=== PATIENT | male | born 1980 | race Caucasian/White ===

== ENCOUNTER 2021-06-20 12:15 | Outpatient (CLI) | payer OTHER | END 2021-06-20 12:16 | disposition home or self-care (01) | LOC: ULT 12:15 | PROVIDERS: ATTEND Internal Medicine Critical Care Medicine | DX: I26.92 Saddle embolus of pulmonary artery without acute cor pulmonale (principal); I08.3 Combined rheumatic disorders of mitral, aortic and tricuspid valves | CPT/HCPCS: 93306 ==

== ENCOUNTER 2022-08-20 12:31 | Outpatient (CLI) | payer OTHER | END 2022-08-20 12:32 | disposition home or self-care (01) | LOC: ULT 12:31 | PROVIDERS: ATTEND Internal Medicine Critical Care Medicine | DX: I26.92 Saddle embolus of pulmonary artery without acute cor pulmonale (principal); I08.3 Combined rheumatic disorders of mitral, aortic and tricuspid valves | CPT/HCPCS: 93306 ==

== ENCOUNTER 2022-09-23 17:22 | Observation (INO) | payer SELFPAY ==
[~2022-09-23 17:22] MED LIST: Iopamidol-370 76% 500 ML 1 ML ONE
[2022-09-23 18:41] LABS: #Eosinphils 0.1 thou/uL (0.0-0.7); #Lymphocytes 0.8 thou/uL (1.20-3.40); #Monocytes 0.6 thou/uL (0.11-0.59); #Neutrophils 5.6 thou/uL (1.40-6.50); %Basophils 0.2 % (0.0-1.0); %Lymphocytes 11.5 % (21.0-51.0); %Monocytes 8.2 % (0.0-10.0); %Neutrophils 79.2 % (42.0-75.0); Hemoglobin 15.9 g/dL (14.0-18.0); Mean Corpuscular Hemoglobin 33.1 pg (27.0-31.0); Mean Corpuscular Volume 97.6 fl (78.0-98.0); Mean Platelet Volume 9.2 fL (7.4-10.4); Platelet Count 148 10x3/uL (130-400); RBC Distribution Width 15.8 % (11.5-14.5); White Blood Cell (WBC) Count 7.1 10x3/uL (4.8-10.8)
[2022-09-23 19:07] LABS: ALT (SGPT) 19 U/L (8-55); AST (SGOT) 26 U/L (5-34); Albumin 4.2 g/dL (3.5-5.0); Alkaline Phosphatase 164 U/L (40-110); Anion Gap 15 mmol/L (10-20); BUN (Urea Nitrogen) 28 mg/dL (8.9-20.6); Bilirubin, Total 2.7 mg/dL (0.2-1.2); Calc. Creatinine Clearance 0 mL/min (70-130); Calcium 9.2 mg/dL (7.8-10.44); Carbon Dioxide 19 mmol/L (22-29); Chloride 103 mmol/L (98-107); Estimated GFR 61; Globulin 2.7 g/dL (2.4-3.5); Glucose 79 mg/dL (70-105); Lipase 27 U/L (8-78); Potassium 4.5 mmol/L (3.5-5.1); Protein, Total 6.9 g/dL (6.0-8.3); Sodium 132 mmol/L (136-145)
[2022-09-23] MEDS ORDERED: Aspirin Chewable 81 MG TAB ONE (22:31)
[2022-09-23 22:51] LABS: Troponin I 0.019 ng/mL (< 0.028)
[2022-09-23] MEDS ORDERED: Acetaminophen 325 MG TAB PO PRN (23:58)
[2022-09-23] MEDS ORDERED: Ondansetron PF 4 MG/2 ML Vial IVP PRN (23:58)
[2022-09-23] MEDS ORDERED: Nitroglycerin 0.4 MG TAB (25 Tab Bottle) SL PRN (23:58)
[2022-09-24 00:21] VITALS: BMI 30.2
[2022-09-24 02:00] LABS: Troponin I 0.021 ng/mL (< 0.028)
[2022-09-24 05:01] LABS: #Eosinphils 0.1 thou/uL (0.0-0.7); #Lymphocytes 1.1 thou/uL (1.20-3.40); #Monocytes 0.5 thou/uL (0.11-0.59); #Neutrophils 3.4 thou/uL (1.40-6.50); %Basophils 0.6 % (0.0-1.0); %Eosinophils 1.8 % (0.0-10.0); %Lymphocytes 20.6 % (21.0-51.0); %Monocytes 10.1 % (0.0-10.0); %Neutrophils 66.9 % (42.0-75.0); Hemoglobin 15.9 g/dL (14.0-18.0); Mean Corpuscular HGB CONC 33.7 g/dL (32.0-36.0); Mean Corpuscular Hemoglobin 33.2 pg (27.0-31.0); Mean Corpuscular Volume 98.4 fl (78.0-98.0); Mean Platelet Volume 8.8 fL (7.4-10.4); Platelet Count 137 10x3/uL (130-400); RBC Distribution Width 15.8 % (11.5-14.5); White Blood Cell (WBC) Count 5.1 10x3/uL (4.8-10.8)
[2022-09-24 05:24] LABS: Anion Gap 13 mmol/L (10-20); BUN (Urea Nitrogen) 26 mg/dL (8.9-20.6); Calc. Creatinine Clearance 118 mL/min (70-130); Calcium 9.1 mg/dL (7.8-10.44); Carbon Dioxide 18 mmol/L (22-29); Cardiac Risk 4.6 (Less than 4.5); Chloride 106 mmol/L (98-107); Cholesterol 97 mg/dl (< 200 Desired); Estimated GFR 82; Glucose 84 mg/dL (70-105); HDL Cholesterol 21 mg/dL (>60 Neg Risk); LDL Cholesterol, Calculated 63 mg/dL; Potassium 4.3 mmol/L (3.5-5.1); Sodium 133 mmol/L (136-145); Triglycerides 63 mg/dL (Less than 150)
[2022-09-24 07:41] LABS: Amphetamine Not Detected (NotDetected); Barbiturates Screen Not Detected (NotDetected); Benzodiazepine Screen Not Detected (NotDetected); Cocaine Metabolite Screen Not Detected (NotDetected); Methadone Not Detected (NotDetected); Methamphetamine Not Detected (NotDetected); Opiate Screen Not Detected (NotDetected); Oxycodone Screen Not Detected (NotDetected); Phencyclidine (PCP) Not Detected (NotDetected); THC/Cannabinoid Screen Not Detected (NotDetected); Tricyclic Screen Not Detected (NotDetected)
[2022-09-24] MEDS ORDERED: ADENOSINE 60 MG/20 ML VIAL ONE (08:23)
[2022-09-24] MEDS ORDERED: Furosemide 20 MG TAB PO SCH (09:00)
[2022-09-24] MEDS ORDERED: Apixaban 5 MG TAB PO SCH (09:00)
[2022-09-24 13:19] VITALS: BP 125/84; TEMP 97.9
== END 2022-09-24 15:42 | disposition home or self-care (01) ==
LOC: ERS 17:22 → 2SW 21:59
PROVIDERS: ADMIT Internal Medicine; ATTEND Internal Medicine
DX: R07.89 Other chest pain (principal); R91.1 Solitary pulmonary nodule; R42 Dizziness and giddiness; R06.02 Shortness of breath; R60.0 Localized edema; Z86.16 Personal history of COVID-19; Z86.711 Personal history of pulmonary embolism; Z87.891 Personal history of nicotine dependence; Z79.01 Long term (current) use of anticoagulants
CPT/HCPCS: 36415; 71045; 71275; 78452; 80048; 80053; 80061; 80306; 83690; 83880; 84484; 85025; 93005; 93017; 94760; A9500; G0378; J0153; Q9967

== ENCOUNTER 2024-05-27 13:18 | Inpatient (IN) | payer SELFPAY ==
[2024-05-27] MEDS ORDERED: Iopamidol-370 76% 500 ML MDV (1 ML CHARGE) ONE (13:43)
[2024-05-27 13:58] LABS: #Basophils 0.09 10x3/uL (0.0-0.2); %Basophils 1.4 % (0.0-1.0); %Eosinophils 1.8 % (0.0-10.0); %Monocytes 9.1 % (0.0-10.0); %Neutrophils 76.2 % (42.0-75.0); Hematocrit 45.2 % (42.0-52.0); Mean Corpuscular HGB CONC 33.2 g/dL (32.0-36.0); Mean Corpuscular Hemoglobin 31.1 pg (27.0-31.0); Mean Corpuscular Volume 93.6 fL (78.0-98.0); Mean Platelet Volume 9.7 fL (7.4-10.4); Platelet Count 241 10x3/uL (130-400); RBC Distribution Width 15.9 % (11.5-14.5); Red Blood Cell (RBC) Count 4.83 mill/uL (4.70-6.10)
[2024-05-27 14:10] LABS: PTT 49.4 sec (22.9-36.1); Prothrombin Time 22.9 sec (12.0-14.7)
[2024-05-27 14:14] LABS: ALT (SGPT) 13 U/L (8-55); AST (SGOT) 25 U/L (5-34); Albumin 3.6 g/dL (3.5-5.0); Alkaline Phosphatase 201 U/L (40-110); Anion Gap 18 mmol/L (10-20); BUN (Urea Nitrogen) 24 mg/dL (8.9-20.6); Calc. Creatinine Clearance 0 mL/min (70-130); Carbon Dioxide 20 mmol/L (22-29); Chloride 101 mmol/L (98-107); Estimated GFR 67; Globulin 3.5 g/dL (2.4-3.5); Glucose 84 mg/dL (70-105); Lipase 26 U/L (8-78); Potassium 4.8 mmol/L (3.5-5.1); Protein, Total 7.1 g/dL (6.0-8.3); Sodium 134 mmol/L (136-145)
[2024-05-27 14:19] LABS: Troponin I 0.016 ng/mL (< 0.028)
[2024-05-27 15:54] LABS: Bacteria/HPF None Seen HPF (None Seen); Bilirubin Negative (Negative); Blood, Urine Negative (Negative); CAUTI Indications for Culture Pelvic or flank pain; Clarity Clear (Clear); Glucose, Urine (Dipstick) Normal (Negative); Ketone, Urine Negative (Negative); Leukocyte Negative Leu/uL (Negative); Nitrite Negative (Negative); Protein, Urine (Dipstick) Negative (Neg-Trace); RBC/HPF None Seen HPF (0-3); Specific Gravity, Urine 1.033 (1.002-1.036); Squamous Epithelial 0-3 HPF (0-3); Urobilinogen Normal mg/dL (Less than 2); WBC/HPF 0-3 HPF (0-3); pH, Urine 5.5 (5.0-9.0)
[2024-05-27] MEDS ORDERED: Furosemide 40 MG (4 mL) VIAL ONE (15:58)
[2024-05-27 15:59] LABS: Urine Culture Reflex No No
[2024-05-27] MEDS ORDERED: Guaifenesin DM 100-10/5 ML UDCUP PO PRN (16:50)
[2024-05-27] MEDS ORDERED: traMADol HCl 50 MG TAB PO PRN (16:50)
[2024-05-27] MEDS ORDERED: Ondansetron PF 4 MG/2 ML Vial IVP PRN (16:50)
[2024-05-27] MEDS ORDERED: Senokot S 8.6-50 MG TAB PO PRN (16:50)
[2024-05-27 19:58] VITALS: BMI 27.3
[2024-05-28] MEDS: Furosemide 40 MG (4 mL) VIAL SLOW IVP SCH (06:03)
[2024-05-28 07:07] LABS: #Basophils 0.07 10x3/uL (0.0-0.2); %Basophils 1.3 % (0.0-1.0); %Eosinophils 2.2 % (0.0-10.0); %Lymphocytes 12.2 % (21.0-51.0); %Monocytes 10.4 % (0.0-10.0); %Neutrophils 73.5 % (42.0-75.0); Hematocrit 44.1 % (42.0-52.0); Hemoglobin 14.5 g/dL (14.0-18.0); Mean Corpuscular HGB CONC 32.9 g/dL (32.0-36.0); Mean Corpuscular Hemoglobin 31.4 pg (27.0-31.0); Mean Corpuscular Volume 95.5 fL (78.0-98.0); Mean Platelet Volume 10.2 fL (7.4-10.4); Platelet Count 223 10x3/uL (130-400); RBC Distribution Width 15.9 % (11.5-14.5); Red Blood Cell (RBC) Count 4.62 mill/uL (4.70-6.10)
[2024-05-28 07:18] LABS: INR-International Normal Ratio 1.7; Prothrombin Time 19.7 sec (12.0-14.7)
[2024-05-28 07:39] LABS: ALT (SGPT) 13 U/L (8-55); AST (SGOT) 23 U/L (5-34); Albumin 3.7 g/dL (3.5-5.0); Alkaline Phosphatase 186 U/L (40-110); Anion Gap 18 mmol/L (10-20); BUN (Urea Nitrogen) 21 mg/dL (8.9-20.6); Bilirubin, Total 1.8 mg/dL (0.2-1.2); Calc. Creatinine Clearance 102 mL/min (70-130); Calcium 9.1 mg/dL (7.8-10.44); Carbon Dioxide 17 mmol/L (22-29); Chloride 103 mmol/L (98-107); Estimated GFR 80; Globulin 3.3 g/dL (2.4-3.5); Glucose 71 mg/dL (70-105); Iron 60 ug/dL (65-175); Iron Binding Capacity, Total 315 mcg/dL (261-462); Magnesium 2.1 mg/dL (1.6-2.6); Potassium 3.9 mmol/L (3.5-5.1); Sodium 134 mmol/L (136-145)
[2024-05-28 07:57] LABS: Ferritin 300.14 ng/mL (22-322); Thyroid Stimulating Hormone 3.9654 uIU/mL (0.35-4.94)
[2024-05-28] MEDS: Spironolactone 25 MG TAB PO SCH (08:54)
[2024-05-28] MEDS ORDERED: Phytonadione 5 MG TAB PO SCH (10:45)
[2024-05-28] MEDS ORDERED: Sodium Bicarbonate 2.5 MEQ/5 ML SDV ONE (12:20)
[2024-05-28] MEDS ORDERED: Lidocaine 1% PF 5 ML VIAL ONE (12:20)
[2024-05-28] MEDS: Potassium Bicarbonate/Cit Ac 20 MEQ TAB PO SCH ×2 (14:09→18:21)
[2024-05-28] MEDS: Piperacillin/Tazobactam 3.375 GM in Sodium Chloride 0.9% 100 ML IVPB SCH ×2 (14:10→18:21)
[2024-05-28] MEDS: Albumin 25% 25 GM (100 mL) BOT IVPB SCH (14:10)
[2024-05-28 14:22] LABS: RBC Count-Automated (BF) 170 /cu.mm; WBC/Nucleated-Auto (BF) 860 /cu.mm
[2024-05-28 14:36] LABS: BF Color Yellow; Body Fluid Source Ascites Body Fluid; Clarity Clear (Clear); Tube # EDTA
[2024-05-28 14:40] LABS: BF Segmented Neutrophils 8 %; Cell Count Non Hematic 78 %; Lymphocytes 14 %
[2024-05-28] MEDS: Thiamine 100 MG TAB PO SCH (20:50)
[2024-05-28] MEDS: Multivit, Therapeutic 1 TAB PO SCH (20:50)
[2024-05-28] MEDS: Cyanocobalamin (Vitamin B-12) 1,000 MCG TAB PO SCH (20:50)
[2024-05-28] MEDS: Folic Acid 1 MG TAB PO SCH (20:50)
[2024-05-28] MEDS ORDERED: Thiamine 100 MG TAB PO SCH (21:00)
[2024-05-29] MEDS: Midodrine HCl 5 MG TAB PO SCH (02:13)
[2024-05-29 04:27] LABS: #Basophils 0.04 10x3/uL (0.0-0.2); %Basophils 0.6 % (0.0-1.0); %Eosinophils 2.3 % (0.0-10.0); %Monocytes 9.9 % (0.0-10.0); %Neutrophils 77.9 % (42.0-75.0); Hematocrit 40.4 % (42.0-52.0); Hemoglobin 13.8 g/dL (14.0-18.0); Mean Corpuscular HGB CONC 34.2 g/dL (32.0-36.0); Mean Corpuscular Hemoglobin 30.6 pg (27.0-31.0); Mean Corpuscular Volume 89.6 fL (78.0-98.0); Mean Platelet Volume 10.3 fL (7.4-10.4); Platelet Count 223 10x3/uL (130-400); RBC Distribution Width 15.9 % (11.5-14.5); Red Blood Cell (RBC) Count 4.51 mill/uL (4.70-6.10)
[2024-05-29 04:31] LABS: Lactic Acid 0.82 mmol/L (0.5-2.2)
[2024-05-29 04:35] LABS: ALT (SGPT) 10 U/L (8-55); AST (SGOT) 19 U/L (5-34); Albumin 3.7 g/dL (3.5-5.0); Alkaline Phosphatase 159 U/L (40-110); Anion Gap 15 mmol/L (10-20); BUN (Urea Nitrogen) 24 mg/dL (8.9-20.6); Bilirubin, Total 1.7 mg/dL (0.2-1.2); Calc. Creatinine Clearance 89 mL/min (70-130); Calcium 8.9 mg/dL (7.8-10.44); Carbon Dioxide 21 mmol/L (22-29); Chloride 100 mmol/L (98-107); Estimated GFR 70; Globulin 2.6 g/dL (2.4-3.5); Glucose 85 mg/dL (70-105); Immunoglob - G (Total IgG) 1039 mg/dL (540-1822); Immunoglob - M (Total IgM) 90 mg/dL (22-240); Potassium 3.9 mmol/L (3.5-5.1); Protein, Total 6.3 g/dL (6.0-8.3); Sodium 132 mmol/L (136-145)
[2024-05-29 04:47] LABS: INR-International Normal Ratio 1.8; Prothrombin Time 20.6 sec (12.0-14.7)
[2024-05-29 04:58] LABS: HBsAg Index 0.33 S/CO (0-0.99); Hep A IgM AB NONREACTIVE (NonReactive); Hep A IgM S/CO 0.52 S/CO (0-0.79); Hep B Core IgM Index 0.08 S/CO (0-0.79); Hep B Surf Ag NONREACTIVE S/CO (NonReactive); Hep C IgG Ab NONREACTIVE S/CO (NonReactive); Hep C Index 0.12 S/CO (0-0.79); Hepatitis B Core IgM Abs NONREACTIVE S/CO (NonReactive)
[2024-05-29] MEDS: Apixaban 5 MG TAB PO SCH (11:21)
[2024-05-29 11:51] VITALS: TEMP 98.6
[2024-05-29 13:17] VITALS: BP 113/72
[2024-05-29] MEDS ORDERED: Apixaban 5 MG TAB PO SCH (21:00)
[2024-05-31 12:50] LABS: ANA Symphony (Qualitative) Negative (Negative); ANA Symphony (Quantitative) 0.1 Ratio (< 0.7 Negative); EliA Vaculitis New Method **** NEW METHOD ****; Mitochondrial Ab 1.2 U/mL (<4 Negative); dsDNA IgG Antibody 2.5 IU/mL (<10 Negative)
[2024-06-01 19:13] LABS: Coccidioides ABS (DID) Negative (Neg:<1:2); Histoplasma Mycelial AB (CF) Negative (Neg:<1:2)
== END 2024-05-29 11:35 | disposition short-term general hospital (02) | DRG 432 ==
LOC: ERS 13:18 → 2NO 16:53
PROVIDERS: ADMIT Hospitalist; ATTEND Internal Medicine
PROC: 30233K1 Transfusion of Nonautologous Frozen Plasma into Peripheral Vein, Percutaneous Approach (ICD-10-PCS; 2024-05-27)
PROC: 0W9G3ZZ Drainage of Peritoneal Cavity, Percutaneous Approach (ICD-10-PCS; principal; 2024-05-28)
PROC: 30233J1 Transfusion of Nonautologous Serum Albumin into Peripheral Vein, Percutaneous Approach (ICD-10-PCS; 2024-05-28)
DX: K70.31 Alcoholic cirrhosis of liver with ascites (principal); I50.33 Acute on chronic diastolic (congestive) heart failure; E87.1 Hypo-osmolality and hyponatremia; N17.9 Acute kidney failure, unspecified; I50.810 Right heart failure, unspecified; N18.2 Chronic kidney disease, stage 2 (mild); I27.29 Other secondary pulmonary hypertension; Z87.891 Personal history of nicotine dependence; Z98.890 Other specified postprocedural states; Z79.01 Long term (current) use of anticoagulants; Z79.899 Other long term (current) drug therapy
CPT/HCPCS: 36415; 36430; 49083; 71045; 74177; 80053; 80074; 81001; 82042; 82103; 82105; 82390; 82728; 82945; 83516; 83540; 83550; 83605; 83615; 83690; 83735; 83880; 84157; 84443; 84484; 85025; 85060; 85610; 85730; 86015; 86038; 86225; 86635; 86698; 86850; 86900; 86901; 87070; 87205; 87449; 89051; 93005; 93306; 93798; 93970; 96374; J1940; J2543; P9047; P9059; Q9967